=== PATIENT | female | born 1950 | race Caucasian/White ===

== ENCOUNTER 2016-11-18 21:43 | Inpatient (IN) | payer BC ==
[~2016-11-18] VITALS: Ht 160 cm; Wt 73.2 kg
[2016-11-18] MEDS ORDERED: ADVA230A (21:54)
[2016-11-18] MEDS ORDERED: D3-5CAP PO (21:54)
[2016-11-18] MEDS ORDERED: LEVO50TA5 PO (21:54)
[2016-11-18] MEDS ORDERED: [UNRECOGNIZED DRUG - CODE] EX (21:54)
[2016-11-18] MEDS ORDERED: monistat PV (21:54)
[2016-11-19 00:15] LABS: BASO % 0.3 % (0.0-1.0); EOS # 0.2 K/mm3 (0.0-0.50); EOS % 2.2 % (0.0-3.0); LARGE UNSTAINED CELL % 0.6 % (0.0-4.0); LYMPH # 0.8 K/mm3 (1.5-4.5); LYMPH % 10.2 % (24.0-44.0); MEAN CORPUSCULAR HEMOGLOBIN 29.5 pg (27.0-33.0); MEAN CORPUSCULAR HGB CONC 32.2 g/dl (32.0-36.5); MEAN CORPUSCULAR VOLUME 91.5 fl (80.0-96.0); MONO # 0.3 K/mm3 (0.0-0.8); MONO % 3.9 % (0.0-5.0); NEUTROPHILS # 6.5 K/mm3 (1.8-7.7); NEUTROPHILS % 82.8 % (36.0-66.0); PLATELET COUNT, AUTOMATED 263 k/mm3 (150-450); RED CELL DISTRIBUTION WIDTH 12.8 % (11.5-14.5); WHITE BLOOD COUNT 7.8 K/mm3 (4.0-10.0)
[2016-11-19 00:42] LABS: ALBUMIN 3.5 GM/DL (3.2-5.2); ALBUMIN/GLOBULIN RATIO 0.95 (1.00-1.93); ALKALINE PHOSPHATASE 72 U/L (45-117); ALT/SGPT 365 U/L (12-78); ANION GAP 7 MEQ/L (8-16); AST/SGOT 564 U/L (15-37); BILIRUBIN,DIRECT 1.2 MG/DL (0.0-0.2); BILIRUBIN,TOTAL 1.8 MG/DL (0.2-1.0); BLOOD UREA NITROGEN 10 MG/DL (7-18); CALCIUM LEVEL 9.3 MG/DL (8.8-10.2); CARBON DIOXIDE LEVEL 29 MEQ/L (21-32); CHLORIDE LEVEL 102 MEQ/L (98-107); CREATININE FOR GFR 0.79 MG/DL (0.55-1.02); GLOMERULAR FILTRATION RATE > 60.0 (>45); GLUCOSE, FASTING 120 MG/DL (80-110); SODIUM LEVEL 138 MEQ/L (136-145); TOTAL PROTEIN 7.2 GM/DL (6.4-8.2)
[2016-11-19] MEDS ORDERED: NS 1,000 ML IV ONE (01:00)
[2016-11-19] MEDS ORDERED: ONDANSETRON 4MG/2ML VIAL (J2405) IV ONE (01:00)
[2016-11-19] MEDS ORDERED: MORPHINE 4 MG/ML 1ML SYRINGE IV PRN (01:00)
--- NOTE | 2016-11-19 02:20 | REPUSA ---
CLINICAL HISTORY: Abdominal pain. TECHNIQUE: Realtime sonographic images were obtained in multiple projections. COMMENTS: The liver is of normal size, parenchyma demonstrates normal echogenicity. No discrete hepatic mass is seen. There is no intra or extrahepatic biliary ductal dilatation. CBD measures 6.4mm. The gallbladder is p hysiologically distended with evidence of calculi. The gallbladder wall is thickened measuring 8 mm a nd there is no pericholecystic fluid. There is no abdominal ascites. The right kidney measures 10.8x4.8x4.8 cm, free of hydronephrosis. IMPRESSION: Cholelithiasis. Mild changes of acute cholecystitis. Thank you for your kind referral of this patient.
[2016-11-19] MEDS ORDERED: KETOROLAC 30 MG/ML VIAL (J1885) IV PRN (04:15)
[2016-11-19] MEDS ORDERED: PERCOCET 5MG/325MG TAB PO PRN (04:15)
[2016-11-19] MEDS ORDERED: ONDANSETRON 4MG/2ML VIAL (J2405) IV PRN (04:15)
[2016-11-19] MEDS ORDERED: MORPHINE 2 MG/ML 1ML SYRINGE IV PRN (04:15)
[2016-11-19] MEDS ORDERED: IPRATROPIUM 0.5MG/ALBUTEROL 2.5MG INH SOL UD 3ML (DUONEB)(J7620) NEB PRN (04:15)
[2016-11-19] MEDS ORDERED: ISOVUE-370 76% 100ML VIAL (Q9967) As Ordered ONE (04:22)
[2016-11-19] MEDS ORDERED: MONI1OIN PV (04:25)
[2016-11-19 05:02] VITALS: BP 139/64
--- NOTE | 2016-11-19 05:20 | REPUSA ---
CLINICAL HISTORY: Abdominal pain. TECHNIQUE: Multiple axial, sagittal and coronal CT images were obtained through the abdomen and pelvi s after administration of intravenous contrast material. COMMENTS: The liver is enlarged with decreased attenuation without mass or defect. There is no intra or extrahe patic biliary ductal dilatation. The spleen is normal. The gallbladder is thickened containing gallst ones. The pancreas is enlarged and hypodense. Surrounding free fluid and inflammatory fat stranding. There is 2.1 cm right adrenal nodule. Both kidneys demonstrate prompt and equal nephrograms. The kidneys are normal in size, shape and conf iguration. There is no evidence of renal or ureteral mass. No renal or ureteral calculi are identifie d. There is no hydroureter or hydronephrosis. No evidence for appendicitis. There is no bowel wall thickening. No evidence for small or large mariela l obstruction. There is no evidence of intrinsic or extrinsic bladder mass. There is no pelvic ascites or lymphadeno lety. Food residue in the stomach suggestive of gastroparesis. Mild prostatomegaly. Diffusely thicke ishaan bladder. Uncomplicated colonic diverticulosis. Images of the lung bases show no evidence of pleural or parenchymal mass. There are no pleural effusi ons. The bony structures are free of lytic or blastic lesions. Multilevel degenerative changes are seen in volving the thoracolumbar spine. Scattered calcifications are seen involving the aorta and major bran ches compatible with atherosclerosis. IMPRESSION: Hepatomegaly with fatty liver infiltration. Cholelithiasis. Acute calculus cholecystitis. Nondilated biliary tree. Acute pancreatitis. Food residue in the distended stomach suggestive of gastroparesis. Uncomplicated diverticulosis. Mild prostatomegaly. Cystitis. No drainable fluid collection. Thank you for your kind referral of this patient.
[2016-11-19] MEDS: LEVOTHYROXINE 50MCG TABLET (0.05MG) PO SCH (06:15)
[2016-11-19] MEDS: NS 1,000 ML IV SCH ×4 (06:15→19:15)
[2016-11-19] MEDS: HEPARIN SOD (PORCINE) 5000 UNITS/ML VIAL SC SCH ×3 (06:16→21:59)
[2016-11-19 06:23] LABS: BASO % 0.2 % (0.0-1.0); EOS % 0.9 % (0.0-3.0); LARGE UNSTAINED CELL # 0.1 K/mm3 (0.0-0.4); LARGE UNSTAINED CELL % 1.1 % (0.0-4.0); LYMPH % 17.3 % (24.0-44.0); MEAN CORPUSCULAR HEMOGLOBIN 30.1 pg (27.0-33.0); MEAN CORPUSCULAR HGB CONC 32.7 g/dl (32.0-36.5); MONO # 0.3 K/mm3 (0.0-0.8); MONO % 6.4 % (0.0-5.0); NEUTROPHILS # 3.9 K/mm3 (1.8-7.7); NEUTROPHILS % 74.1 % (36.0-66.0); PLATELET COUNT, AUTOMATED 245 k/mm3 (150-450); WHITE BLOOD COUNT 5.3 K/mm3 (4.0-10.0)
[2016-11-19 06:31] LABS: INR 1.05
--- NOTE | 2016-11-19 06:39 | HPE ---
DATE OF ADMISSION: 11/19/2016 PRIMARY CARE PROVIDER: Bea Raphael at [facility]. CHIEF COMPLAINT: Abdominal pain. HISTORY OF PRESENT ILLNESS: This is a 66-year-old female patient with underlying medical history of hypothyroidism, questionable asthma who presented to the hospital with acute onset at 3 p.m. yesterday afternoon of epigastric and right upper quadrant abdominal pain that is 10/10 at its worse. Subsequently she was brought into the hospital. She denies any nausea or vomiting, fever or chills, diarrhea. Her last bowel movement was yesterday. In the hospital the pain actually improved, she was given pain medication. Pain improved at about midnight. Laboratory studies show elevated transaminitis, as well as elevated bilirubin and elevated lipase. Diagnosis was pancreatitis. Subsequently admission was requested. Intravenous (IV) fluids were given in the emergency department (ED). The patient denies any chest pain, pressure or discomfort, fever or chills, denies any vision change or hearing change. She is currently comfortable with minimal abdominal pain. ALLERGIES: No known drug allergies. PAST MEDICAL HISTORY: Hypothyroidism. PAST SURGICAL HISTORY: None as per patient. SOCIAL HISTORY: Lives at home with , quit smoking two months ago one-half pack per day for 25 years. Denies alcohol drinking, she may drink a sip of wine once a year. FAMILY HISTORY: Denies family history of cancer. REVIEW OF SYSTEMS: The patient reports epigastric and right upper quadrant abdominal pain, no nausea or vomiting. Reported pain to be burning. All other review of systems are negative. HOME MEDICATIONS: - dimethicone ointment gel as needed itching - tioconazole cream as directed - vitamin D 50,000 units by mouth as directed - levothyroxine 50 mcg by mouth daily PHYSICAL EXAMINATION: VITAL SIGNS: Temperature 98.4, pulse 92, respirations 15, blood pressure 134/61, pulse ox 94% on room air. GENERAL: Patient awake, alert and oriented times three, no acute distress. HEENT: Normocephalic atraumatic. PULMONARY: Bilaterally clear to auscultation. CARDIAC: Regular rate and rhythm, normal S1, S2. ABDOMEN: Right upper quadrant tenderness with rebound. Positive Sandy sign. Hypoactive bowel sounds, otherwise soft. EXTREMITIES: No clubbing, cyanosis of edema. NEUROLOGIC: No focal deficit. LABORATORY DATA: WBC 7.8, hemoglobin 14.4, hematocrit 44.7, platelets 263. Sodium 138, potassium 4, chloride 102, bicarbonate 29, BUN 10, creatinine 0.79, bilirubin 1.8, AST 564, ALT 363, lipase 10,645. Ultrasound shows cholelithiasis with acute cholecystitis. EKG shows sinus rhythm at 73, no ST segment changes. ASSESSMENT AND PLAN: This is a 66-year-old female patient with underlying medical history of hypothyroidism, questionable asthma admitted for acute gallstone pancreatitis. PROBLEMS: 1. Acute gallstone pancreatitis. Intravenous (IV) fluids. Pain medications as ordered. Followup CT scan with IV contrast, also magnetic resonance cholangiopancreatography (MRCP). Consultation with sledger, Dr. Mclean and general surgeon, Dr. Hollis for possible endoscopic retrograde cholangiopancreatography (ERCP) versus cholecystectomy. Nothing by mouth for now. Zofran, followup electrolytes. Followup lipase. Followup kidney function. 2. Hypothyroidism. Follow thyroid function. Continue Synthroid. 3. Deep venous thrombosis (DVT) prophylaxis. Heparin subcutaneous. DISPOSITION PLANNING: Pending gastroenterology and general surgery followup and pending clinical improvement.
[2016-11-19 06:40] LABS: ALKALINE PHOSPHATASE 68 U/L (45-117); ALT/SGPT 668 U/L (12-78); ANION GAP 8 MEQ/L (8-16); AST/SGOT 903 U/L (15-37); BLOOD UREA NITROGEN 7 MG/DL (7-18); CALCIUM LEVEL 8.5 MG/DL (8.8-10.2); CARBON DIOXIDE LEVEL 26 MEQ/L (21-32); CHLORIDE LEVEL 105 MEQ/L (98-107); CREATININE FOR GFR 0.66 MG/DL (0.55-1.02); GLOMERULAR FILTRATION RATE > 60.0 (>45); GLUCOSE, FASTING 114 MG/DL (80-110); MAGNESIUM LEVEL 2.2 MG/DL (1.8-2.4); POTASSIUM SERUM 4.1 MEQ/L (3.5-5.1); SODIUM LEVEL 139 MEQ/L (136-145); T UPTAKE 34 % (30-39); THYROXINE (T4) 7.8 UG/DL (4.5-12.0)
[2016-11-19] MEDS: SENOKOT S TAB PO SCH ×2 (08:02→21:59)
--- NOTE | 2016-11-19 08:31 | ECGEPIP ---
Stationary ECG Study [facility] - ED Test Date: 2016-11-18 Pat Name: TESS BRUMFIELD Department: Room: [place] [address] Gender: F Amf Mechanic: MurilloB: 1950 Requested By: TAMI Arellano Order Number: [id number] Reading MD: Jameel Higuera Measurements Intervals [place] Rate: 73 P: 83 [place]: 183 QRS: 86 QRSD: 104 T: 75 QT: 379 QTc: 419 Interpretive Statements SINUS RHYTHM WITH MARKED SINUS ARRHYTHMIA POSSIBLE LAE NO PRIORS Electronically Signed On 11-19-2016 8:31:18 EDT by Jameel Higuera
--- NOTE | 2016-11-19 11:47 | REP ---
MRCP: MRCP exam is accomplished utilizing multiple heavily T2-weighted sequences in the axial and coronal planes. MIP reconstruction images are performed. Correlation is made with CT and ultrasound 11/19/2016. Diffuse gallbladder wall edema is seen. There are multiple gallstones in the gallbladder. There is no intrahepatic or extrahepatic biliary dilatation. The common bile duct has the maximum diameter of 6 mm. No stricture or filling defect is seen at the common bile duct. There is ill-defined periportal edema. The pancreatic duct is not dilated, normal in caliber. There are a couple of tiny cysts in the right kidney. There is a right adrenal nodule probably representing an adenoma measuring approximately 2 cm in maximum diameter. I do not see significant ascites or other significant finding. IMPRESSION: Significant gallbladder wall edema diffusely with internal gallstones in the gallbladder. No biliary dilatation. No stricture or filling defect in the common bile duct. There is periportal edema. No pancreatic duct dilatation. Signed by Tyler Hinkle MD 11/19/2016 01:13 P
--- NOTE | 2016-11-19 13:52 | IPNPDOC ---
Subjective Date Seen The patient was seen on 11/19/16. Subjective Chief Complaint/HPI The patient is a 66-year-old female admitted with a reason for visit of Gallstone Pancreatitis. Events since last encounter pain better this am after pain medications , no fever or chills, no chest pain or sob , no abdominal pain nausea or vomiting. Objective Physical Examination General Exam: Positive: Alert, Cooperative, No Acute Distress Eye Exam: Positive: PERRLA, Conjunctiva & lids normal, EOMI, Negative: Sclera icteric ENT Exam: Positive: Atraumatic, Mucous membr. moist/pink, Pharynx Normal Neck Exam: Positive: Supple, Negative: JVD, thyromegaly Chest Exam: Positive: Clear to auscultation, Normal air movement Heart Exam: Positive: Rate Normal, Regular Rhythm, Normal S1, Normal S2, Negative: Murmurs, Rubs Abdomen Exam: Positive: BS Hypoactive, Soft, Negative: Tenderness, Hepatospenomegaly, Mass Extremity Exam: Positive: Normal pulses, Negative: Clubbing, Cyanosis, Edema Skin Exam: Positive: Nl turgor and temperature, Negative: Rash, Breakdown Assessment /Plan Problems (1) Gallstone pancreatitis Status: Acute Problem Text: will continue NPO. continue IVF and pain medications MRCP done awaiting gastroenterology and surgical evaluation (2) Hypothyroid Status: Chronic Plan/VTE VTE Prophylaxis Ordered?: Yes VS, I&O, 24H, Fishbone Vital Signs/I&O Vital Signs Date Time Temp Pulse Resp B/P (MAP) Pulse Ox O2 Delivery O2 Flow Rate FiO2 11/19/16 13:18 18 Room Air 11/19/16 05:02 98.5 75 139/64 (89) 98 2.0 I&O- Last 24 Hours up to 6 AM 11/19/16 06:00 Intake Total 1000 ml Output Total 0 ml Balance 1000 ml Laboratory Data 24H LABS Laboratory Tests 2 11/18/16 22:03: Urine Appearance CLOUDYH, Urine Color ABHISHEK, Urine pH 7.0, Urine Specific Hazel 1.016, Urine Protein NEGATIVE, Urine Glucose (UA) NEGATIVE, Urine Ketones NEGATIVE, Urine Urobilinogen 2.0H, Urine Bilirubin NEGATIVE, Urine Leukocyte Esterase NEGATIVE, Urine Blood NEGATIVE, Urine Nitrite NEGATIVE, Urine WBC (Auto) 1, Urine RBC (Auto) 5H, Urine Hyaline Casts (Auto) 0, Urine Bacteria (Auto) NEGATIVE, Urine Squamous Epithelial Cells 2, Urine Amorphous Sediment MODERATEH, Urine Sperm (Auto) 11/19/16 00:09: White Blood Count 7.8, Red Blood Count 4.88, Hemoglobin 14.4, Hematocrit 44.7, Mean Corpuscular Volume 91.5, Mean Corpuscular Hemoglobin 29.5, Mean Corpuscular Hemoglobin Concent 32.2, Red Cell Distribution Width 12.8, Platelet Count 263, Neutrophils (%) (Auto) 82.8H, Lymphocytes (%) (Auto) 10.2L, Monocytes (%) (Auto) 3.9, Eosinophils (%) (Auto) 2.2, Basophils (%) (Auto) 0.3, Neutrophils # (Auto) 6.5, Lymphocytes # (Auto) 0.8L, Monocytes # (Auto) 0.3, Eosinophils # (Auto) 0.2, Basophils # (Auto) 0.0, Large Unclassified Cells % 0.6 , Large Unclassified Cells # 0.0, Anion Gap 7L, Glomerular Filtration Rate > 60.0, Calcium Level 9.3, Aspartate Amino Transf (AST/SGOT) 564H, Alanine Aminotransferase (ALT/SGPT) 365H, Alkaline Phosphatase 72, Total Bilirubin 1.8H , Direct Bilirubin 1.2H, Total Creatine Kinase 197H, Creatine Kinase MB 1.7, Creatine Kinase MB Relative Index 0.86, Troponin I < 0.02, Total Protein 7.2, Albumin 3.5, Albumin/Globulin Ratio 0.95L, Lipase 63770L 11/19/16 06:07: White Blood Count 5.3, Red Blood Count 4.41, Hemoglobin 13.3, Hematocrit 40.6, Mean Corpuscular Volume 92.0, Mean Corpuscular Hemoglobin 30.1, Mean Corpuscular Hemoglobin Concent 32.7, Red Cell Distribution Width 13.0, Platelet Count 245, Neutrophils (%) (Auto) 74.1H, Lymphocytes (%) (Auto) 17.3L, Monocytes (%) (Auto) 6.4H, Eosinophils (%) (Auto) 0.9, Basophils (%) (Auto) 0.2 , Neutrophils # (Auto) 3.9, Lymphocytes # (Auto) 1.0L, Monocytes # (Auto) 0.3, Eosinophils # (Auto) 0.0, Basophils # (Auto) 0.0, Large Unclassified Cells % 1.1 , Large Unclassified Cells # 0.1, Anion Gap 8, Glomerular Filtration Rate > 60.0 , Calcium Level 8.5L, Aspartate Amino Transf (AST/SGOT) 903H, Alanine Aminotransferase (ALT/SGPT) 668H, Alkaline Phosphatase 68, Total Bilirubin 2.0H , Total Creatine Kinase 157, Creatine Kinase MB 1.4, Creatine Kinase MB Relative Index 0.89, Troponin I < 0.02, Total Protein 6.0L, Albumin 3.0L, Albumin/Globulin Ratio 1.00, Lipase 71689P, Prothrombin Time 13.8, Prothromb Time International Ratio 1.05, Blood Urea Nitrogen 7, Creatinine 0.66, Sodium Level 139, Potassium Level 4.1, Chloride Level 105, Carbon Dioxide Level 26, Magnesium Level 2.2, Thyroid Stimulating Hormone (TSH) 5.360H, Free Thyroxine Index 2.7, Thyroxine (T4) 7.8, Triiodothyronine (T3) Uptake 34 CBC/BMP Laboratory Tests 11/19/16 00:09 Red Blood Count 4.88, Mean Corpuscular Volume 91.5, Mean Corpuscular Hemoglobin 29.5, Mean Corpuscular Hemoglobin Concent 32.2, Red Cell Distribution Width 12.8 , Neutrophils (%) (Auto) 82.8 H, Lymphocytes (%) (Auto) 10.2 L, Monocytes (%) ( Auto) 3.9, Eosinophils (%) (Auto) 2.2, Basophils (%) (Auto) 0.3, Neutrophils # ( Auto) 6.5, Lymphocytes # (Auto) 0.8 L, Monocytes # (Auto) 0.3, Eosinophils # ( Auto) 0.2, Basophils # (Auto) 0.0 11/19/16 06:07 Red Blood Count 4.41, Mean Corpuscular Volume 92.0, Mean Corpuscular Hemoglobin 30.1, Mean Corpuscular Hemoglobin Concent 32.7, Red Cell Distribution Width 13.0 , Neutrophils (%) (Auto) 74.1 H, Lymphocytes (%) (Auto) 17.3 L, Monocytes (%) ( Auto) 6.4 H, Eosinophils (%) (Auto) 0.9, Basophils (%) (Auto) 0.2, Neutrophils # (Auto) 3.9, Lymphocytes # (Auto) 1.0 L, Monocytes # (Auto) 0.3, Eosinophils # (Auto) 0.0, Basophils # (Auto) 0.0, Calcium Level 8.5 L, Aspartate Amino Transf (AST/SGOT) 903 H, Alanine Aminotransferase (ALT/SGPT) 668 H, Total Creatine Kinase 157, Alkaline Phosphatase 68, Total Bilirubin 2.0 H, Total Protein 6.0 L , Albumin 3.0 L Microbiology Microbiology 11/18/16 Urine Culture, Received Pending KAYLEEN GROVER MD Nov 19, 2016 13:52
[2016-11-19 14:00] VITALS: BP 144/66
[2016-11-19] MEDS ORDERED: ISOVUE-300 61% 50ML VIAL (Q9967) As Ordered ONE (16:15)
--- NOTE | 2016-11-19 17:12 | CR ---
DATE OF CONSULTATION: 11/19/2016 STATUS OF PATIENT: Inpatient. REQUESTING PHYSICIAN: Hospitalist service. REASON FOR CONSULTATION: Gallstone pancreatitis. HISTORY OF PRESENT ILLNESS: This is a 66-year-old female with a history of hypothyroidism but otherwise quite healthy, who presented to the emergency room at [facility] with sudden onset of epigastric and right upper quadrant abdominal pain which was judged to be quite severe, associated with some severe nausea initially, however, the nausea had responded to medical management. She underwent lab work and CT evaluation which revealed significant cholestasis and transaminitis on lab work along with marked lipase elevation. The CT revealed findings consistent with acute pancreatitis and cholelithiasis. It is of note that her bile duct was judged to be normal without intrahepatic ductal dilatation. The patient subsequently underwent ultrasound which showed the same. Due to significant cholestasis I was asked to consult and evaluate the patient for possible ERCP. The patient underwent an MRCP which revealed findings consistent with pancreatitis, cholelithiasis, but the common bile duct was free of overt stone material. Since presentation to the emergency room the patient received morphine one-time dose and her abdominal pain completely subsided. She currently feels hungry and thirsty and actually feels quite well this morning. ALLERGIES: No known drug allergies. PAST MEDICAL HISTORY: Is hypothyroidism. PAST SURGICAL HISTORY: Is negative for any surgical history. SOCIAL HISTORY: Is negative for alcohol and negative for tobacco. FAMILY HISTORY: Negative for colorectal carcinoma, inflammatory bowel disease or chronic liver disease. REVIEW OF SYSTEMS: GENERAL: Negative for night sweats, fevers or chills or weight loss. PULMONARY: Negative for hemoptysis, pleuritic-type chest pain. CARDIAC: Negative for orthopnea, PND. MUSCULOSKELETAL: Negative for myalgias, arthralgias. NEUROLOGICAL: Negative for focal numbness or weakness or slurred speech. GASTROINTESTINAL (GI): As per HPI. MEDICATIONS AT HOME: - levothyroxine 50 mcg daily - vitamin D daily PHYSICAL EXAMINATION: Temperature is 98.6, pulse is 90, respirations 16, blood pressure 144/68, pulse oximetry 94% on room air. GENERAL: She is awake, alert and oriented times three, in no acute distress, nontoxic in appearance. She appears quite comfortably in bed reading a newspaper. HEENT: Is grossly without abnormality. There is no oral thrush. I do not appreciate any scleral icterus. Neck is supple. No lymphadenopathy or thyromegaly is appreciated. LUNGS: Are clear bilaterally without rhonchi or crackles. HEART: Is regular rate and rhythm, S1, S2. No murmurs or gallops. ABDOMEN: Is obese, soft, nontender. She has no masses palpable. No ascites. EXTREMITIES: Is negative for edema. Pulses are present and intact. NEUROLOGICAL: She is awake, alert and oriented times three. She moves all extremities equally and bilaterally. She walks without deficit. LABORATORY FINDINGS: WBC is 5.3, hemoglobin 13.3, platelet count is 245. PT/INR 1.05, BUN is 7, creatinine 0.66, total bilirubin 1.8/2.0, AST 564/903, ALT is 365/668, alkaline phosphatase 72/68, albumin is 3.5/3.0, lipase 10,645 /16,481. IMAGING STUDIES: Ultrasound right upper quadrant dated 11/19/2016, impression: Cholelithiasis, mild changes of acute cholecystitis. CT abdomen and pelvis 11/19/2016, impression: 1. Hepatomegaly with fatty liver infiltration. 2. Cholelithiasis. 3. Acute calculus cholecystitis. 4. Nondilated biliary tree. 5. Acute pancreatitis. 6. Food residue in the distended stomach suggestive of gastroparesis. 7. Uncomplicated diverticulosis. 8. Cystitis. 9. No drainable fluid collection. MRCP impression: 1. Significant gallbladder wall edema diffusely with internal gallstones in the gallbladder. 2. No biliary dilation. 3. No stricture or filling defect in the common bile duct. 4. There is periportal edema. 5. No pancreatic duct dilatation. Common bile duct is measured at maximum 6 mm. IMPRESSION: 1. Gallstone pancreatitis is the likely mechanism of her presentation. 2. Biliary colic. 3. Cholestasis. DISCUSSION: Despite her significant pancreatic enzyme elevation and pancreatic inflammation and edema seen on CT scan, her symptoms are very minimal at best at present. MRCP does not show choledocholithiasis. She likely passed her gallstone. Her bilirubin has slightly increased overnight as have her transaminases which may possibly be as a result of delayed peaking before they start coming down. Certainly at this time she is quite comfortable and surprisingly asymptomatic. I will at this time hold off on ERCP. I am going to await her lab work tomorrow and decide if ERCP at that point may be indicated. In the meantime the patient is kept on clear liquids. MTDD
[2016-11-19] MEDS ORDERED: PROMETHAZINE INJ 25 MG/ML VIAL (J2550) IV PRN (20:45)
[2016-11-19 22:00] VITALS: BP 138/64
[2016-11-20] MEDS: NS 1,000 ML IV SCH ×4 (00:05→19:43)
[2016-11-20 06:00] VITALS: BP 120/55
[2016-11-20] MEDS: LEVOTHYROXINE 50MCG TABLET (0.05MG) PO SCH (06:08)
[2016-11-20] MEDS: HEPARIN SOD (PORCINE) 5000 UNITS/ML VIAL SC SCH ×3 (06:09→20:25)
[2016-11-20 06:39] LABS: MEAN CORPUSCULAR HEMOGLOBIN 31.2 pg (27.0-33.0); MEAN CORPUSCULAR HGB CONC 32.7 g/dl (32.0-36.5); MEAN CORPUSCULAR VOLUME 95.5 fl (80.0-96.0); RED CELL DISTRIBUTION WIDTH 13.1 % (11.5-14.5); WHITE BLOOD COUNT 5.4 K/mm3 (4.0-10.0)
[2016-11-20 07:15] LABS: ALBUMIN 2.7 GM/DL (3.2-5.2); ALBUMIN/GLOBULIN RATIO 0.93 (1.00-1.93); ALKALINE PHOSPHATASE 81 U/L (45-117); ALT/SGPT 529 U/L (12-78); ANION GAP 11 MEQ/L (8-16); AST/SGOT 300 U/L (15-37); BILIRUBIN,TOTAL 0.9 MG/DL (0.2-1.0); BLOOD UREA NITROGEN 6 MG/DL (7-18); CALCIUM LEVEL 7.8 MG/DL (8.8-10.2); CARBON DIOXIDE LEVEL 19 MEQ/L (21-32); CHLORIDE LEVEL 110 MEQ/L (98-107); CREATININE FOR GFR 0.45 MG/DL (0.55-1.02); GLOMERULAR FILTRATION RATE > 60.0 (>45); GLUCOSE, FASTING 58 MG/DL (80-110); POTASSIUM SERUM 3.6 MEQ/L (3.5-5.1); SODIUM LEVEL 140 MEQ/L (136-145); TOTAL PROTEIN 5.6 GM/DL (6.4-8.2)
[2016-11-20] MEDS: SENOKOT S TAB PO SCH ×2 (08:14→20:23)
--- NOTE | 2016-11-20 11:15 | IPNPDOC ---
Subjective Date Seen The patient was seen on 11/20/16. Subjective Chief Complaint/HPI The patient is a 66-year-old female admitted with a reason for visit of Gallstone Pancreatitis. Events since last encounter No complaints this morning , no abdominal pain nausea or vomiting , did not require any pain medications. no fever or chills Objective Physical Examination General Exam: Positive: Alert, Cooperative, No Acute Distress Eye Exam: Positive: PERRLA, Conjunctiva & lids normal, EOMI, Negative: Sclera icteric ENT Exam: Positive: Atraumatic, Mucous membr. moist/pink, Pharynx Normal Neck Exam: Positive: Supple, Negative: JVD, thyromegaly Chest Exam: Positive: Clear to auscultation, Normal air movement Heart Exam: Positive: Rate Normal, Regular Rhythm, Normal S1, Normal S2, Negative: Murmurs, Rubs Abdomen Exam: Positive: BS Hypoactive, Soft, Negative: Tenderness, Hepatospenomegaly, Mass Extremity Exam: Positive: Normal pulses, Negative: Clubbing, Cyanosis, Edema Skin Exam: Positive: Nl turgor and temperature, Negative: Rash, Breakdown Assessment /Plan Problems (1) Gallstone pancreatitis Status: Acute Problem Text: improving will not need ERCP diet advanced. will need cholecystectomy as outpatient to follow with surgery (2) Hypothyroid Status: Chronic Plan/VTE VTE Prophylaxis Ordered?: Yes VS, [facility] Sign[facility]/I&O Vital Signs Date Time Temp Pulse Resp B/P (MAP) Pulse Ox O2 Delivery O2 Flow Rate FiO2 11/20/16 06:00 98.1 81 20 120/55 (76) 91 Room Air 11/19/16 05:02 2.0 I&O- Last 24 Hours up to 6 AM 11/20/16 06:00 Intake Total 2760 ml Output Total 725 ml Balance 2035 ml Laboratory Data 24H LABS Laboratory Tests 2 11/20/16 06:17: Anion Gap 11, Glomerular Filtration Rate > 60.0, Blood Urea Nitrogen 6L, Creatinine 0.45L, Sodium Level 140, Potassium Level 3.6, Chloride Level 110H, Carbon Dioxide Level 19L, Calcium Level 7.8L, Aspartate Amino Transf (AST/SGOT) 300H, Alanine Aminotransferase (ALT/SGPT) 529H, Alkaline Phosphatase 81, Total Bilirubin 0.9#, Total Protein 5.6L, Albumin 2.7L, Magnesium Level 2.0, Albumin/ Globulin Ratio 0.93L, Lipase 196 CBC/BMP Laboratory Tests 11/20/16 06:17 Red Blood Count 3.91 L, Mean Corpuscular Volume 95.5, Mean Corpuscular Hemoglobin 31.2, Mean Corpuscular Hemoglobin Concent 32.7, Red Cell Distribution Width 13.1, Calcium Level 7.8 L, Aspartate Amino Transf (AST/SGOT) 300 H, Alanine Aminotransferase (ALT/SGPT) 529 H, Alkaline Phosphatase 81, Total Bilirubin 0.9 #, Total Protein 5.6 L, Albumin 2.7 L Microbiology Microbiology 11/18/16 Urine Culture - Final, Complete Klebsiella Pneumoniae KAYLEEN GROVER MD Nov 20, 2016 11:15
[2016-11-20 14:00] VITALS: BP 131/68
[2016-11-20 22:00] VITALS: BP 140/63
[2016-11-21] MEDS: NS 1,000 ML IV SCH (04:15)
[2016-11-21] MEDS: HEPARIN SOD (PORCINE) 5000 UNITS/ML VIAL SC SCH (05:05)
[2016-11-21 06:00] VITALS: BP 150/69
[2016-11-21] MEDS: LEVOTHYROXINE 50MCG TABLET (0.05MG) PO SCH (06:09)
[2016-11-21 06:21] LABS: MEAN CORPUSCULAR HGB CONC 33.1 g/dl (32.0-36.5); MEAN CORPUSCULAR VOLUME 93.6 fl (80.0-96.0); RED CELL DISTRIBUTION WIDTH 13.1 % (11.5-14.5); WHITE BLOOD COUNT 4.7 K/mm3 (4.0-10.0)
[2016-11-21 06:32] LABS: ALBUMIN 2.7 GM/DL (3.2-5.2); ALBUMIN/GLOBULIN RATIO 0.93 (1.00-1.93); ALKALINE PHOSPHATASE 80 U/L (45-117); ALT/SGPT 438 U/L (12-78); ANION GAP 7 MEQ/L (8-16); AST/SGOT 172 U/L (15-37); BILIRUBIN,TOTAL 0.5 MG/DL (0.2-1.0); BLOOD UREA NITROGEN 3 MG/DL (7-18); CALCIUM LEVEL 8.2 MG/DL (8.8-10.2); CARBON DIOXIDE LEVEL 24 MEQ/L (21-32); CHLORIDE LEVEL 108 MEQ/L (98-107); CREATININE FOR GFR 0.47 MG/DL (0.55-1.02); GLOMERULAR FILTRATION RATE > 60.0 (>45); GLUCOSE, FASTING 83 MG/DL (80-110); MAGNESIUM LEVEL 1.9 MG/DL (1.8-2.4); POTASSIUM SERUM 3.5 MEQ/L (3.5-5.1); SODIUM LEVEL 139 MEQ/L (136-145); TOTAL PROTEIN 5.6 GM/DL (6.4-8.2)
[2016-11-21] MEDS: SENOKOT S TAB PO SCH (09:00)
--- NOTE | 2016-11-22 18:07 | DSES ---
DATE OF ADMISSION: 11/19/2016 DATE OF DISCHARGE: 11/21/2016 PRIMARY CARE PROVIDER: Bea Raphael at [facility] CONSULTS: Dr. Mclean and Dr. Hollis DISCHARGE DIAGNOSES: Gallstones. Pancreatitis. Hypothyroidism. Right adrenal adenoma size 2 cm. Mild fatty infiltration of the liver. Diverticulosis. DISCHARGE MEDICATIONS: - cholecalciferol 50,000 units as directed - Synthroid 50 mcg by mouth daily - dimethicone 1.2% gel as needed itching - tioconazole 6.5% ointment as directed or vaginally. HOSPITAL COURSE: This is a 66-year-old female presented to the hospital with acute onset and epigastric and right upper quadrant pain without any nausea or vomiting. The patient pain improved with pain medication. Laboratory workup in the emergency department showed transaminitis, elevated bilirubin as well as elevated lipase. The patient was diagnosed with gallstone pancreatitis. The patient underwent MRCP which showed. Gallbladder filled with multiple stones, however, there was no dilation of the common bile duct or intrahepatic biliary system. There is no dilatation of the pancreatic duct. There was no stricture or filling defect. The patient was managed conservatively with IV fluids, pain medications. The patient responded well to treatment with improvement in her lipase levels and improvement in her liver enzymes. The patient was seen by Dr. Mclean from gastroenterology and it was felt that the patient did not need an ERCP at this point as the patient has improved significantly. The patient was also seen by Dr. Hollis and said that patient would need cholecystectomy which can be done as an outpatient. The patient has to followup with Dr. Hollis as directed. On the day of discharge the patient did not have any complaints. Vitals were stable and functioning at baseline. PHYSICAL EXAMINATION: VITAL SIGNS: Temperature 98.4, pulse 96, respiratory rate 20, blood pressure 155/72, pulse oximetry 94% on room air. GENERAL: The patient awake, alert, oriented times three. Sitting up in bed. In no acute distress. HEENT: Normocephalic, atraumatic. Moist mucous membranes. Anicteric eyes. CHEST: Clear to auscultation. CARDIOVASCULAR: S1, S2, regular. No rub, murmur or gallop. ABDOMEN: Soft, nontender. Bowel sounds present. EXTREMITIES: No edema. LABORATORY DATA: WBC 4.7, hemoglobin 12.1, platelet 210. Sodium 139, potassium 3.5, chloride 108, bicarbonate 24, BUN 3, creatinine 0.4. Glucose 83, calcium 8.2, magnesium 1.9. AST 172, ALT 438, total bilirubin 0.5. Albumin 2.7. Lipase 110. DISPOSITION: The patient is discharged home in stable condition. DISCHARGE INSTRUCTIONS: The patient to followup with Dr. Hollis in two weeks. The patient to followup with primary care provider in one week. Low cholesterol, low salt diet. Activity as tolerated. MTDD
[2016-11-25] MEDS ORDERED: VITAMIN D 50,000 UNITS CAPSULE (ERGOCALCIFEROL 1.25MG) PO SCH (09:00)
== END 2016-11-21 11:05 | disposition home or self-care (01) | DRG 282 ==
LOC: M ED 21:43 → M ED INP 11-19 04:07 → UNDOADMIN 11-19 04:07 → M ED 11-19 05:04 → M MSPAV 11-19 05:06 → M ED INP 11-19 05:06
PROVIDERS: ADMIT Hospitalist; ATTEND Internal Medicine Nephrology
DX: K85.10 Biliary acute pancreatitis without necrosis or infection (principal); E03.9 Hypothyroidism, unspecified; Z79.899 Other long term (current) drug therapy; Z87.891 Personal history of nicotine dependence

== ENCOUNTER 2016-12-28 06:49 | Day surgery (SDC) | payer BC ==
[~2016-12-28] VITALS: Ht 160 cm; Wt 65.3 kg
[~2016-12-28 06:49] MED LIST: ADVA230A; D3-5CAP PO; LEVO50TA5 PO; MONI1OIN PV; [UNRECOGNIZED DRUG - CODE] EX; monistat PV
[2016-12-28] MEDS ORDERED: AMPICILLIN SOD/SULBACTAM SOD 3 GM in D5W MINI-BAG PLUS 100 ML IV ONE (07:30)
[2016-12-28] MEDS ORDERED: LR 1,000 ML IV SCH ×2 (07:30→10:30)
[2016-12-28] MEDS ORDERED: PROPOFOL 200 MG/20 ML VIAL As Ordered ONE (08:12)
[2016-12-28] MEDS ORDERED: LIDOCAINE 2% INJ 100 MG/5 ML SDV (FOR ANES.) As Ordered ONE (08:12)
[2016-12-28] MEDS ORDERED: ROCURONIUM BROMIDE 50 MG/5 ML VIAL/SYRINGE As Ordered ONE (08:12)
[2016-12-28] MEDS ORDERED: BUPIVACAINE HCL 0.25% 30 ML VIAL As Ordered ONE (08:13)
[2016-12-28] MEDS ORDERED: fentaNYL 250 MCG/5 ML INJECTION (J3010) As Ordered ONE (08:13)
[2016-12-28] MEDS ORDERED: MIDAZOLAM INJ 2 MG/2 ML VIAL (J2250) As Ordered ONE (08:13)
[2016-12-28] MEDS ORDERED: LIDOCAINE 1% SDV INJ 30 ML VIAL As Ordered ONE (08:13)
[2016-12-28] MEDS ORDERED: CONRAY-60 60% 50ML VIAL (Q9961) As Ordered ONE ×2 (08:13→09:28)
[2016-12-28] MEDS ORDERED: PHENYLephrine HCL 500 MCG/5 ML (100MCG/ML) SYRINGE (J2370) As Ordered ONE (08:44)
[2016-12-28] MEDS ORDERED: ePHEDrine SULFATE 25 MG/5 ML(5MG/ML) SYRINGE As Ordered ONE ×2 (08:44→08:55)
[2016-12-28] MEDS ORDERED: GLYCOPYRROLATE INJ 0.2 MG/ML 2 ML VIAL As Ordered ONE (09:04)
[2016-12-28] MEDS ORDERED: ONDANSETRON 4MG/2ML VIAL (J2405) As Ordered ONE (09:04)
[2016-12-28] MEDS ORDERED: NEOSTIGMINE 1MG/ML 5 ML SYRINGE (J2710) As Ordered ONE (09:04)
[2016-12-28] MEDS ORDERED: GLUCAGON FOR INJ 1 MG VIAL (J1610) As Ordered ONE (09:28)
[2016-12-28] MEDS ORDERED: KETOROLAC 30 MG/ML VIAL (J1885) IV SCH (10:00)
[2016-12-28] MEDS ORDERED: ONDANSETRON 4MG/2ML VIAL (J2405) IV PRN ×2 (10:15→10:30)
[2016-12-28] MEDS ORDERED: NORCO, ANEXSIA 5/325MG TABLET (HYDROcodone/ACETAMINOPHEN) PO PRN ×2 (10:15)
[2016-12-28] MEDS ORDERED: ALBUTEROL SULFATE 2.5 MG/0.5 ML INH NEB SOLN As Ordered ONE (10:16)
[2016-12-28] MEDS ORDERED: PERCOCET 5MG/325MG TAB PO PRN (10:30)
[2016-12-28] MEDS ORDERED: MEPERIDINE INJ 25 MG/ML VIAL (J2175) IV PRN (10:30)
[2016-12-28] MEDS ORDERED: fentaNYL 100 MCG/2 ML INJECTION (J3010) IV PRN (10:30)
[2016-12-28] MEDS ORDERED: ALBUTEROL SULFATE 2.5 MG/0.5 ML INH NEB SOLN INH ONE (10:45)
[2016-12-28 13:50] VITALS: BP 141/67
--- NOTE | 2016-12-28 16:01 | REP ---
Intraoperative cholangiogram: 10 views. History: Gallstones, pancreatitis. 57 seconds of fluoroscopy time is reported. Findings: A sequence of 10 last image hold fluoroscopic spot radiographs of the right upper quadrant taken during cystic duct contrast injection demonstrate a mildly prominent common bile and common hepatic duct. The visualized intrahepatic ducts are unremarkable. There is a filling defect in the distal common bile duct apparently obstructing it. No contrast is seen in the duodenum. The filling defect is suggestive of a small calculus in the choledochus. Signed by Trav Nowak MD 12/28/2016 04:35 P
--- NOTE | 2017-01-08 16:45 | ROOPDOC ---
[facility] Report Of Operation Report of Operation DATE OF PROCEDURE: 12/28/16 PREPROCEDURE DIAGNOSES: cholelithiasis, history of gallstone pancreatitis. POSTPROCEDURE DIAGNOSES: cholelithiasis, history of gallstone pancreatitis, choledocholithiasis PROCEDURE: laparoscopic cholecystectomy with intraoperative cholangiogram SURGEON: Fady Matt MD LEATHER STRETCHER: Ramon Arnold MD ANESTHESIA:Gen. anesthesia ESTIMATED BLOOD LOSS: Approximately 10 mL. COMPLICATIONS: none. REMARKS: 66-year-old female with previous history of gallstone pancreatitis admitted to the hospital and resolved with nonoperative treatment. She was subsequently sent to my office for cholecystectomy. PROCEDURE NOTE: gallbladders thin-walled, minimally distended. No acute inflammation noted. Liver smooth. Intraoperative cholangiogram shows a nondistended, nondilated extrahepatic biliary tree with a small stone at the distal common bile duct. I was not able to get the contrast go through to the duodenum even with giving the patient some glucagon to relax the sphincter of Oddi. Patient is asymptomatic from the stone. Her LFTs are normal.. She would require an outpatient ERCP. DESCRIPTION OF PROCEDURE: Patient was given a dose Unasyn 3 g IV preoperatively for prophylaxis. She was brought to the operating room, laid supine on the table, compression boots placed for DVT prophylaxis. General endotracheal anesthesia started. Her abdomen then prepped and draped in usual sterile fashion. Surgical timeout was performed prior to starting surgery. Entry into the abdomen done through an incision above the umbilicus. A Veress needle was inserted with a controlled fashion. CO2 insufflation started to pressure 15 mmHg. Using the same incision a 5 mm Visiport was placed under direct vision laparoscope. The area underneath the insertion site was inspected and no injury found. She was then placed in steep reverse Trendelenburg. Her right side was tilted up to further expose the gallbladder. Under direct vision a 11 mm epigastric port and 25 mm working ports placed along the right subcostal line. Diagnostic laparoscopy, her liver appeared smooth.. Her gallbladder is only minimally distended. He has a thin wall. No active inflammation noted. The fundus of the gallbladder was grasped and the gallbladder was elevated superiorly exposing the neck of the gallbladder. The peritoneum overlying the area was opened up and dissected free both anteriorly and posteriorly to help with retraction of the gallbladder. The hepatocystic triangle was approached and dissected using a [place] and instrument. The cystic duct was identified coming off from the next gallbladder this was circumferentially dissected. The cystic artery was identified in its usual position medially behind a small lymph node of Calot. This was similarly circumferentially dissected off surrounding adipose tissue. We continued posterior dissection proximally at the next gallbladder until a critical view of safety was achieved whereby only the previously identified duct and artery coursing through the neck the gallbladder. At this point the cystic artery was clipped 4 times and divided. I further dissected circumferentially the proximal cystic duct and neck the gallbladder off the liver plate. A Akhtar clamp was then placed from the lateral port site and the neck of the gallbladder was clamped. The cholangiogram catheter under direct vision was placed into the neck of the gallbladder and we got bile return into the catheter with aspiration.. A trial of saline injection shows flow into the cystic duct without distending the gallbladder. At this point we performed an intraoperative cholangiogram. The patient's abdomen was insufflated. She was placed on a slight Trendelenburg position. The fluoroscopic C-arm was positioned. Initially I did a half contrast cholangiogram. I was able to visualize the cystic duct and bifurcation of the hepatic ducts. We repositioned and follows able to see the common bile duct. They were minimally pulsatile but not really distended. There is some suggestion of possible filling defect at the distal common bile duct with no appearance of the duodenum. I gave the patient a milligram of glucagon.. After waiting for 2 minutes cholangiogram was repeated this time with full contrast Conray. The filling defect is more prominent and remains at the distal common bile duct with no sign of the contrast going into the duodenum. Prior to the surgery patient is asymptomatic and her LFTs are normal less at this point a think she would be better off with an interval ERCP to deal with a retained stone at the distal common bile duct. The abdomen was sent again reinflated.After again checking her anatomy and verifying that the previously identified cystic duct, this was also clipped 4 times and divided. The rest of the gallbladder was then dissected free of the gallbladder bed using Bovie cautery. There was minimal bleeding at the lateral gallbladder attachments to the liver capsule this was easily controlled with Bovie cautery. The gallbladder was then placed in an Endo Catch bag and retrieved outside through the epigastric port site. Under insufflation and inspected the clips and noted this to be in place. No further bleeding noted. No bile leakage noted. The abdomen was insufflated all ports were removed. The epigastric fascial defect repaired with 0 Vicryl in a mattress fashion. Rest of the skin incisions closed with 4-0 Monocryl in subcuticular fashion. Steri- Strips and gauze dressings were placed, the wound. Patient was informed they awakened, extubated and brought to recovery room stable FADY MATT MD Jan 08, 2017 16:45
== END 2016-12-28 13:54 | disposition home or self-care (01) ==
LOC: M SDC 06:49
PROVIDERS: ATTEND Surgery
DX: K80.10 Calculus of gallbladder with chronic cholecystitis without obstruction (principal); E03.9 Hypothyroidism, unspecified; Z98.51 Tubal ligation status; Z79.899 Other long term (current) drug therapy; Z78.0 Asymptomatic menopausal state; Z87.891 Personal history of nicotine dependence; Z87.19 Personal history of other diseases of the digestive system
CPT/HCPCS: 47563; 74300; 88304; J1610; J2250; J2370; J2405; J2710; J3010; Q9961

== ENCOUNTER 2022-09-26 11:42 | Day surgery (SDC) | payer MEDICARE ==
[~2022-09-26] VITALS: Ht 160 cm; Wt 62.4 kg
[~2022-09-26 11:42] MED LIST changes: +ALBU2.5V10 INH; +D3400CAP PO; +LEVO100T5 PO; +LISI20TA33 PO; +LOPE1CAP5 PO; +NS 1,000 ML IV ONE; +VITMTA PO
[2022-09-26] MEDS ORDERED: propofoL 200 MG/20 ML VIAL As Ordered ONE ×2 (13:04→13:47)
[2022-09-26 14:09] VITALS: BP 120/66
== END 2022-09-26 14:19 | disposition home or self-care (01) ==
LOC: M OPP 11:42
PROVIDERS: ATTEND Internal Medicine Gastroenterology
DX: K57.30 Diverticulosis of large intestine without perforation or abscess without bleeding (principal); K64.0 First degree hemorrhoids; K52.831 Collagenous colitis; Z87.891 Personal history of nicotine dependence; Z79.51 Long term (current) use of inhaled steroids; Z79.890 Hormone replacement therapy; Z79.899 Other long term (current) drug therapy